=== PATIENT | male | born 1975 | race Caucasian/White ===

== ENCOUNTER 2024-07-04 18:20 | Emergency (ER) | payer BC, SELFPAY ==
--- NOTE | 2024-07-04 18:34 | ED.GENMED ---
History of Present Illness
General
Chief Complaint: Weakness
Time Seen by Provider: 07/04/24 18:34
History of Present Illness
History of Present Illness:
HPI: I spoke to the police before I entered the room. The police brought him here for medical clearance before incarceration. The patient was found to be intoxicated at [facility]. The patient is somewhat uncooperative but denies any complaints. He
is upset about being here.
EXAM:
GENERAL: The patient appears to be intoxicated from alcohol use, his right upper extremity was handcuffed to the railing
HEENT: Moist oral mucosa, old scar noted to the face
CARDIOVASCULAR: No murmurs, tachycardic heart rate, regular rhythm, No chest wall tenderness
PULMONARY: No respiratory distress, breath sounds are clear and equal
NEUROLOGIC: Excellent strength all extremities, no coordination deficits
PSYCHIATRIC: The patient appears to be intoxicated from alcohol use he is upset and somewhat agitated
EXTREMITIES: Nontender, no edema, moves all extremities equally
SKIN: No rash, no lesions
TIME OF INITIAL ENCOUNTER: 6:30 PM
NUMBER AND COMPLEXITY OF PROBLEMS ADDRESSED AT THE ENCOUNTER
� Chronic conditions affecting care: Alcoholism, anxiety
� Acute Exacerbation and/or Progression of Chronic Illness: This is an acute exacerbation of a chronic problem
� Differential Diagnosis includes: Chronic alcohol use
AMOUNT AND/OR COMPLEXITY OF DATA TO BE REVIEWED AND ANALYZED
� I performed an independent evaluation of and my interpretation is:
EKG:
CT:
X-rays:
Laboratory Studies: None indicated
Other:
� Review of other/old records: I reviewed the hospitalization notes from 1 year ago he was intubated
� Clinical information was obtained by an independent historian: I spoke to the police outside of the room
� Prescriptions/Medications Considered but not given:
� Further testing considered but not performed:
RISK OF COMPLICATIONS AND/OR MORBIDITY OR MORTALITY OF PATIENT MANAGEMENT
� Social determinants of health affecting care: The patient is currently in police custody
� Discussion with other providers:
� Escalation of care including admission/observation vs risk of discharge considered: I have seen this patient in the past. He has had visits to the emergency department regarding violent behavior in the past. He was intubated
1 year ago. He is clearly upset about being here however he does not offer any medical complaints, I see no signs of trauma on limited examination (patient did not allow complete examination).
Past History
Past History
ED Past Medical History: HTN and Psychiatric
Social History
Tobacco: Non-smoker
Alcohol: Occasional
Phy Exam
Physical Exam
Physical Exam:
See HPI
*Critical Care Note
Total Time (30-74mins, 75-104mins- exclusive of procedures): Not Applicable
ED Attending Note
-
Portions of this chart may have been created with voice recognition software.� Occasional wrong word or��sound alike� substitutions may have occurred due to the inherent limitations of voice recognition software.
Discharge Plan
Departure
Patient Disposition: Shelter
Date of Disposition: 07/04/24
Time of Disposition: 18:39
Discharge Problem:
Alcohol intoxication
Prescriptions:
No Action
lisinopril 20 mg Tablet
20 mg PO DAILY 30 Days Qty: 30 0RF
Patient Comments:
08/22/2023: Unsure of last dose, states he was on Blood pressure med.
Tylenol
1 dose PO Q6H PRN (Reason: mild pain)
Referrals:
UNKNOWN - PT NOT,INTERVIEWE [Family Provider] -
Activity Restrictions/Additional Instructions:
THE PATIENT IS MEDICALLY CLEARED FOR POLICE CUSTODY AND INCARCERATION. Return here if worse or any other concerns.
Interventions
Interventions:
*Nursing Disposition Last Done: 07/04/24 18:58
Discharge Date and Time
Discharge Date/Time: 07/04/24 18:55
Print Language: PORTUGUESE
== END 2024-07-04 18:55 ==
LOC: EMR 18:20
PROVIDERS: EMERGENCY PHYSICIAN Emergency Medicine
DX: F10.129 Alcohol abuse with intoxication, unspecified (principal); Z02.79 Encounter for issue of other medical certificate; R45.1 Restlessness and agitation; I10 Essential (primary) hypertension; F41.9 Anxiety disorder, unspecified
CPT/HCPCS: 99281

== ENCOUNTER 2025-01-10 18:03 | Emergency (ER) | payer OTHER, SELFPAY ==
--- NOTE | 2025-01-10 18:23 | ED.GENMED ---
History of Present Illness
General
Chief Complaint: Alcohol Problem
Source: patient, family and police
Exam Limitations: none
Time Seen by Provider: 01/10/25 18:22
Nursing documentation reviewed up to this point in time: agreed with
History of Present Illness
History of Present Illness:
49-year-old male presents emergency department due to alcohol intoxication, and mother reporting he was throwing up blood. Parents are registering him, and patient ran to the hospital and security went after him. Security was escorting him back
and he became aggressive throwing punches, kick attempting to bite staff. He was then restrained. Police arrived. Patient placed in restraints.
Past History
Past History
ED Past Medical History: HTN and Psychiatric
Patient has exhibited threatening behavior?: Yes
Date of threatening behavior? (updated with each occurrence): 01/10/25
Social History
Tobacco: Non-smoker
Alcohol: Chronic alcoholic
Drug: None
Living: with family
Review of Systems
Review of Systems
Allergies reviewed?: Yes
All Other Systems: Not applicable
Constitutional: Reports no symptoms
EENT: Reports no symptoms
Respiratory: Reports no symptoms
Cardiac: Reports no symptoms
ABD/GI: Reports vomiting
: Reports no symptoms
Musculoskeletal: Reports no symptoms
Skin: Reports no symptoms
Neurological: Reports no symptoms
Endocrine: Reports no symptoms
Hematologic/Lymphatic: Reports no symptoms
Psychiatric: Reports no symptoms
Phy Exam
Physical Exam
Physical Exam:
Physical Exam
General: Alcohol on breath, agitated, aggressive
Neck: supple. no meningeal signs. normal posterior pharynx
Heart: s1/s2 regular rate and rhythm, no murmur. equal radial
pulses.
HEENT: Pupils equal round reactive to light, EOMI
Lungs: no acute respiratory distress. clear bilaterally
Abdomen: normal bowel sounds. not tender. no CVAT
Neuro: alert and oriented. no focal neurological deficits cranial nerves II through XII intact
Skin: no rash
Psychiatric: Aggressive, but answers some questions, denies SI or HI
Extremities: no edema. no calf tenderness. negative homans. good distal pulses
Scores
Withdrawal Assessment of Alcohol
Withdrawal Assessment Completed?: No (pt intoxicated)
Course
Orders/Labs/Results
Orders:
Orders
01/10/25 18:26
IV Insert/Care/Rem.- Treatment PRN
Complete Blood Count/With Diff Urgent
01/10/25 18:27
Alcohol Urgent
Comprehensive Metabolic Panel Urgent
MDM/Problems Addressed
Differential Diagnosis Includes:
Alcohol intoxication, GI bleed
MDM/Problems Addressed:
49-year-old male with alcohol intoxication, aggressive behavior, swinging at staff and attempting to bite staff. Restraints applied. Patient then declined any further treatment after receiving Haldol and Ativan. He was offered evaluation for
vomiting blood, but he declines. He was escorted out by police to his father's car
*Pulse Oximetry
Patient hypoxic: no
*Critical Care Note
Total Time (30-74mins, 75-104mins- exclusive of procedures): 31
comment:
Critical care statement: A total of 31 minutes of critical care time was provided for this patient. This includes management of unstable vital signs, evaluation of the patient at bedside, reviewing the patient's pertinent medical records, discussion
with consultants, review of old EKGs and review of pertinent medical records. This time with separate from time utilized to perform the aforementioned documented procedures
ED Attending Note
-
Portions of this chart may have been created with voice recognition software.� Occasional wrong word or��sound alike� substitutions may have occurred due to the inherent limitations of voice recognition software.
Discharge Plan
Departure
Patient Disposition: Home (Routine Discharge)
Date of Disposition: 01/10/25
Time of Disposition: 18:38
Patient with high blood pressure during this ER visit?: Yes
Condition: Good
Discharge Problem:
Alcohol intoxication
Instructions: Alcohol Use Disorder (DC), BLOOD PRESSURE
Prescriptions:
No Action
lisinopril 20 mg Tablet
20 mg PO DAILY 30 Days Qty: 30 0RF
Patient Comments:
08/22/2023: Unsure of last dose, states he was on Blood pressure med.
Tylenol
1 dose PO Q6H PRN (Reason: mild pain)
Discharge Date and Time
Print Language: KHMER
[2025-01-10 18:31] VITALS: BP 158/114
[2025-01-10 18:36] VITALS: BP 158/114
[2025-01-10] MEDS: ATIVAN 2 MG IM (18:57)
[2025-01-10] MEDS: HALDOL 5 MG IM (18:58)
== END 2025-01-10 19:00 | disposition home or self-care (01) ==
LOC: EMR 18:03
PROVIDERS: EMERGENCY PHYSICIAN Emergency Medicine
DX: F10.129 Alcohol abuse with intoxication, unspecified (principal); K92.0 Hematemesis; I10 Essential (primary) hypertension; Z78.1 Physical restraint status
CPT/HCPCS: 99291; 96372

== ENCOUNTER 2025-10-24 00:31 | Emergency (ER) | payer OTHER, SELFPAY ==
[2025-10-24 00:33] VITALS: BP 145/79
[2025-10-24 00:40] VITALS: BP 145/79
--- NOTE | 2025-10-24 00:45 | EDRN ---
Unable to obtain oral or axillary temp. Pt informed rectal temp needed and pt refusing. Dr. Montanez notified.
--- NOTE | 2025-10-24 00:55 | ED.GENMED ---
History of Present Illness
General
Chief Complaint: Alcohol Problem
Source: patient and ambulance crew
Exam Limitations: none
Time Seen by Provider: 10/24/25 00:34
Nursing documentation reviewed up to this point in time: agreed with
History of Present Illness
History of Present Illness:
50-year-old male presents with alcohol intoxication apparently got an argument his family kicked out he was out in the cold EMS was notified apparently could not go to a longterm because he was drunk here he is cooperative states he is a binge
drinker, states he works he is not interested in rehab
Past History
Past History
ED Past Medical History: HTN and Psychiatric
Patient has exhibited threatening behavior?: Yes
Date of threatening behavior? (updated with each occurrence): 01/10/25
Social History
Tobacco: Non-smoker
Alcohol: Chronic alcoholic
Drug: None
Living: with family
Employment: Employed
Review of Systems
Review of Systems
All Other Systems: Not applicable
: Reports no symptoms
Musculoskeletal: Reports no symptoms
Skin: Reports no symptoms
Neurological: Reports no symptoms
Phy Exam
Physical Exam
Physical Exam:
Physical Exam
General: Intoxicated male cooperative
Neck: No tongue bite
Heart: Regular
Lungs: no acute respiratory distress. clear bilaterally
Neuro: alert and oriented. no focal neurological deficits
Skin: no rash
Psychiatric: Cooperative
Extremities: no edema.
Scores
Withdrawal Assessment of Alcohol
Withdrawal Assessment Completed?: No
Course
Vital Signs
Initial and Last Documented VS:
Initial Vital Signs
Pulse Resp BP Pulse Ox
71 20 145/79 99
10/24/25 00:33 10/24/25 00:33 10/24/25 00:33 10/24/25 00:33
Last Documented Vital Signs
Pulse Resp BP Pulse Ox
71 14 134/90 93
10/24/25 01:24 10/24/25 01:15 10/24/25 02:00 10/24/25 02:30
MDM/Problems Addressed
Differential Diagnosis Includes:
Alcoholism, environmental doubt sepsis
MDM/Problems Addressed:
Alcoholism cold
Chronic conditions affecting care:
Alcohol
Acute Exacerbation and/or Progression of Chronic Illness:
Alcohol
*Pulse Oximetry
SaO2: 100
Oxygen Mode of Delivery: Room air
Patient hypoxic: no
*Critical Care Note
Total Time (30-74mins, 75-104mins- exclusive of procedures): Not Applicable
Update Note
Update Note:
Update patient calm and cooperative, not allowing a rectal temperature, will warm up to his more sober to get a safe discharge plan he is not interested in rehab
4:30 AM update patient up and about we will see if we get some weeks take him home
6:15 AM patient cooperative, states the friend can get him around 8
ED Attending Note
-
Portions of this chart may have been created with voice recognition software.� Occasional wrong word or��sound alike� substitutions may have occurred due to the inherent limitations of voice recognition software.
Discharge Plan
Departure
Patient Disposition: Home (Routine Discharge)
Date of Disposition: 10/24/25
Time of Disposition: 04:29
Patient with high blood pressure during this ER visit?: No
Condition: Good
Discharge Problem:
Alcohol use
Instructions: Alcohol Use Disorder (DC)
Prescriptions:
No Action
lisinopril 20 mg Tablet
20 mg PO DAILY 30 Days Qty: 30 0RF
Patient Comments:
08/22/2023: Unsure of last dose, states he was on Blood pressure med.
Tylenol
1 dose PO Q6H PRN (Reason: mild pain)
Referrals:
UNKNOWN - PT NOT,INTERVIEWE [Family Provider]
Interventions
Interventions:
*General Assessment Last Done: 10/24/25 00:33
*Neglect/Abuse Screening Last Done: 10/24/25 00:33
*ED COVID-19 Vaccine History Last Done: 10/24/25 00:33
*ED Influenza Vaccine History Last Done: 10/24/25 00:33
[facility] Fall Risk Assessment Tool Last Done: 10/24/25 00:42
*Risk Screen - Suicide (C-SSRS) Last Done: 10/24/25 00:33
ED- Neurological Assessment Last Done: 10/24/25 01:24
ED-Psychological Assessment Last Done: 10/24/25 01:24
Discharge Date and Time
Print Language: WELSH
[2025-10-24 01:00] VITALS: BP 131/72
[2025-10-24 02:00] VITALS: BP 134/90
== END 2025-10-24 09:45 | disposition home or self-care (01) ==
LOC: EMR 00:31
PROVIDERS: EMERGENCY PHYSICIAN Emergency Medicine
DX: F10.229 Alcohol dependence with intoxication, unspecified (principal); I10 Essential (primary) hypertension
CPT/HCPCS: 99283